=== PATIENT | male | born 1975 | race Caucasian/White ===

== ENCOUNTER 2016-11-22 18:34 | Emergency (ER) | payer OTHER ==
[2016-11-22] MEDS ORDERED: ZANTAC150 M1 PO (18:39)
[2016-11-22] MEDS ORDERED: WELLBUTRIN SR150 M2 PO (18:39)
[2016-11-22 19:20] VITALS: BP 157/88
== END 2016-11-22 19:20 | disposition home or self-care (01) ==
LOC: ED 18:34
DX: L53.9 Erythematous condition, unspecified (principal); T46.7X5A Adverse effect of peripheral vasodilators, initial encounter

== ENCOUNTER → 2018-01-04 | Outpatient (CLI) | payer OTHER ==
[~2018-01-04] MED LIST: WELLBUTRIN SR150 M2 PO; ZANTAC150 M1 PO
[2018-01-04 09:57] LABS: ALBUMIN 4.4 g/dL (3.5-5.0); BUN/CREATININE RATIO 15.7 (6.0-26.0); CALCIUM 9.3 mg/dL (8.4-10.2); POTASSIUM 4.5 mmol/L (3.6-5.0); TOTAL BILIRUBIN 0.6 mg/dL (0.2-1.3); TOTAL PROTEIN 7.6 g/dL (6.3-8.2)
[2018-01-04 10:09] LABS: EOS # 0.3 (0.04-0.40); EOS % 3.1 % (0.0-4.0); HEMOGLOBIN 16.3 g/dL (13.5-18.0); LYMPH# 2.2 (1.50-4.00); MEAN CELL VOLUME 87 fl (78-100); MEAN CORPUSCULAR HEMOGLOBIN 29 pg (27-31); MEAN CORPUSCULAR HGB CONC 33 g/dL (33-37); MEAN PLATELET VOLUME 10.7 fl (7.4-10.4); MONO # 0.8 (0.20-0.80); NEU # 4.8 (1.40-6.50); PLATELET COUNT 314 K/mm3 (130-400); RED BLOOD COUNT 5.63 M/mm3 (4.20-5.60); RED CELL DISTRIBUTION WIDTH 12.7 % (11.5-14.5); WHITE BLOOD COUNT 8.1 K/mm3 (4.8-10.8)
[2018-01-04 10:48] LABS: ERYTHROCYTE SEDIMENTATION RATE 0 mm/hr (0-15)
== END ==
LOC: LAB 09:13
PROVIDERS: Internal Medicine
DX: Z00.00 Encounter for general adult medical examination without abnormal findings (principal); Z12.5 Encounter for screening for malignant neoplasm of prostate

== ENCOUNTER → 2019-06-01 | Outpatient (CLI) | payer OTHER ==
[2019-06-01 09:26] LABS: HEMATOCRIT 51.1 % (42.0-52.0); HEMOGLOBIN 17.4 g/dL (13.5-18.0); MEAN CELL VOLUME 86 fl (78-100); MEAN CORPUSCULAR HEMOGLOBIN 29 pg (27-31); MEAN CORPUSCULAR HGB CONC 34 g/dL (33-37); MEAN PLATELET VOLUME 11.1 fl (7.4-10.4); PLATELET COUNT 252 K/mm3 (130-400); RED BLOOD COUNT 5.95 M/mm3 (4.20-5.60); RED CELL DISTRIBUTION WIDTH 13.1 % (11.5-14.5); WHITE BLOOD COUNT 6.9 K/mm3 (4.8-10.8)
[2019-06-01 09:31] LABS: ALBUMIN 4.7 g/dL (3.5-5.0)
[2019-06-01 09:32] LABS: POTASSIUM 4.2 mmol/L (3.5-5.1)
[2019-06-01 09:33] LABS: CALCIUM 9.5 mg/dL (8.3-10.5)
[2019-06-01 09:34] LABS: TOTAL PROTEIN 7.7 g/dL (6.4-8.3)
[2019-06-01 09:36] LABS: TOTAL BILIRUBIN 0.6 mg/dL (0.2-1.2)
[2019-06-01 09:46] LABS: BAND 6 % (0-10); LYMPHOCYTE 17 % (20-51); MONOCYTE 11 % (3-10); NEUTROPHILS 63 % (42-75)
== END ==
LOC: LAB 09:10
PROVIDERS: Nurse Practitioner
DX: R50.9 Fever, unspecified (principal)